=== PATIENT | male | born 1990 | race Hispanic/Latino ===

== ENCOUNTER 2018-02-21 20:19 | Emergency (ER) | payer OTHER ==
[2018-02-21 21:41] VITALS: O2SAT 98
[2018-02-21] MEDS ORDERED: Sodium Chloride 0.9% 1,000 ML IV STA (22:32)
--- NOTE | 2018-02-21 22:59 | ED PDOC ---
HPI: Abdomen Time Seen by Provider: 02/21/18 22:20 Chief Complaint (Nursing): Abdominal Pain Chief Complaint (Provider): Abdominal Pain History Per: Patient History/Exam Limitations: no limitations Onset/Duration Of Symptoms: Hrs Current Symptoms Are (Timing): Still Present Additional Complaint(s): Patient is a 28 y/o male with no significant PMHx who presents to the ED for evaluation of abdominal pain since 10:00 this morning. Patient states the pain was diffuse at first and associated with nausea. Patient [place] [employer] [place] he felt lightheaded. The patient states he sat down and felt better. Later today, the abdominal pain seemed to worsen localizing to the right side resulting in a decrease in appetite. Patient claims to have experienced one episode of diarrhea. Patient denies vomiting and abnormal stool or urine. The patient claims his temperature at home, this evening, was at 100. Of note, patient took Advil but with no relief. PCP: None Provided. Past Medical History Reviewed: Historical Data, Nursing Documentation, Vital Signs Vital Signs: Last Vital Signs Temp 98.2 F 02/21/18 21:38 Pulse 106 H 02/21/18 21:38 Resp 20 02/21/18 21:38 BP 138/75 02/21/18 21:38 Pulse Ox 98 02/21/18 21:38 - Medical History PMH: No Chronic Diseases - Surgical History Surgical History: No Surg Hx - Family History Family History: States: Other Other Family History: Gall Bladder Disease - Social History Current smoker - smoking cessation education provided: No Alcohol: Social Drugs: Denies - Home Medications Home Medications: Ambulatory Orders Medication Instructions Recorded Dicyclomine [Bentyl] 20 mg PO BID #30 tab 02/22/18 - Allergies Allergies/Adverse Reactions: Allergies Allergy/AdvReac Type Severity Reaction Status Date / Time Penicillins Allergy ANAPHYLAXIS Verified 02/21/18 21:38 Review of Systems ROS Statement: Except As Marked, All Systems Reviewed And Found Negative (as per HPI) Gastrointestinal: Positive for: Nausea, Abdominal Pain (diffuse, localizing to right), Diarrhea. Negative for: Vomiting, Melena, Hematochezia Genitourinary Male: Negative for: Dysuria, Hematuria Neurological: Positive for: Other (lightheaded) Physical Exam - Reviewed Nursing Documentation Reviewed: Yes Vital Signs Reviewed: Yes - Physical Exam Appears: Positive for: In Acute Distress (Mild, painful) Head Exam: Positive for: ATRAUMATIC, NORMAL INSPECTION, NORMOCEPHALIC Skin: Positive for: Warm, Dry Eye Exam: Positive for: EOMI, PERRL ENT: Negative for: Pharyngeal Erythema, Tonsillar Exudate Neck: Positive for: Painless ROM, Supple Cardiovascular/Chest: Positive for: Regular Rate, Rhythm. Negative for: Murmur Respiratory: Positive for: Normal Breath Sounds. Negative for: Respiratory Distress Gastrointestinal/Abdominal: Positive for: Soft, Tenderness (RLQ and Periumbilical), Guarding (Voluntary, Diffusely), Other (Negative Perales's Sign). Negative for: Mass, Rebound Back: Positive for: Normal Inspection. Negative for: Decreased ROM Extremity: Positive for: Normal ROM. Negative for: Deformity Lymphatic: Negative for: Adenopathy Neurologic/Psych: Positive for: Alert. Negative for: Motor/Sensory Deficits - Laboratory Results Result Diagrams: 02/21/18 22:50 02/21/18 22:50 - ECG O2 Sat by Pulse Oximetry: 98 (RA) Pulse Ox Interpretation: Normal Medical Decision Making Medical Decision Making: Time: 2230 Impression: Abdominal Pain Plan: Type and Screen CT Abd & Pelvis IV Contrast CMP Lipase Urine Dipstick CBC PTT Prothrombin TIme [Dextrose 5%-0.9% NS 500 ml] 500 ml IV 100 mls/hr IV Fluids Toradol 15 mg IVP Zofran Inj 4 mg IVP IV Insertion ([place]) - Scribe Attestation: Documented by Pablo Lloyd, acting as a scribe for Noemi Birmingham MD. Provider Scribe Attestation: All medical record entries made by the Scribe were at my direction and personally dictated by me. I have reviewed the chart and agree that the record accurately reflects my personal performance of the history, physical exam, medical decision making, and the department course for this patient. I have also personally directed, reviewed, and agree with the discharge instructions and disposition. Disposition - Clinical Impression Clinical Impression: Abdominal pain - Disposition Disposition: Transfer of Care Disposition Time: 00:30 Condition: STABLE Prescriptions: Dicyclomine [Bentyl] 20 mg PO BID #30 tab Instructions: Diverticulosis Patient Signed Over To: Darin Vanegas Handoff Comments: Pending CT, reasessment and final ER dispo
[2018-02-21 23:00] LABS: BASO % 0.4 % (0.0-2.0); EOS # 0.1 K/uL (0.0-0.7); EOS % 1.1 % (0.0-4.0); HEMOGLOBIN 15.3 g/dL (12.0-18.0); LYMPH # 1.4 K/uL (1.0-4.3); LYMPH % 14.1 % (20.0-40.0); MEAN CELL VOLUME 90.5 fl (80.0-94.0); MEAN CORPUSCULAR HEMOGLOBIN 31.2 pg (27.0-31.0); MEAN CORPUSCULAR HGB CONC 34.5 g/dL (33.0-37.0); MEAN PLATELET VOLUME 7.2 fl (7.2-11.7); MONO # 0.7 K/uL (0.0-0.8); MONO % 6.8 % (0.0-10.0); NEUT # 7.9 K/uL (1.8-7.0); NEUT % 77.6 % (50.0-75.0); RBC 4.91 Mil/uL (4.40-5.90); RED CELL DISTRIBUTION WIDTH 12.8 % (11.5-14.5); WHITE BLOOD COUNT 10.2 K/uL (4.8-10.8)
[2018-02-21 23:10] LABS: PROTHROMBIN TIME 11.5 Seconds (9.8-13.1)
[2018-02-21 23:11] LABS: ALB/GLOB RATIO 1.3 (1.0-2.1); ALBUMIN 4.5 g/dL (3.5-5.0); ALT/SGPT 20 U/L (21-72); AST/SGOT 22 U/L (17-59); BLOOD UREA NITROGEN 17 mg/dl (9-20); CALCIUM 9.4 mg/dL (8.4-10.2); GFR NON-AFRICAN AMERICAN > 60; LIPASE 31 U/L (23-300)
[2018-02-21 23:13] LABS: PARTIAL THROMBOPLASTIN TIME 29.6 Seconds (25.6-37.1)
[2018-02-21] MEDS ORDERED: Sodium Chloride 0.9% 50 ML IV ONE (23:35)
[2018-02-21] MEDS ORDERED: Iohexol 300 100 ML IJ ONE (23:35)
--- NOTE | 2018-02-22 00:57 | ED PDOC ---
- Laboratory Results Result Diagrams: 02/21/18 22:50 02/21/18 22:50 Lab Results: PT 11.5 Seconds (9.8-13.1) 02/21/18 22:50 INR 1.0 02/21/18 22:50 APTT 29.6 Seconds (25.6-37.1) 02/21/18 22:50 Total Bilirubin 1.8 mg/dl (0.2-1.3) H 02/21/18 22:50 AST 22 U/L (17-59) 02/21/18 22:50 ALT 20 U/L (21-72) L 02/21/18 22:50 Alkaline Phosphatase 59 U/L (38-126) 02/21/18 22:50 Total Protein 7.8 G/DL (6.3-8.2) 02/21/18 22:50 Albumin 4.5 g/dL (3.5-5.0) 02/21/18 22:50 Globulin 3.3 gm/dL (2.2-3.9) 02/21/18 22:50 Albumin/Globulin Ratio 1.3 (1.0-2.1) 02/21/18 22:50 Lipase 31 U/L (23-300) 02/21/18 22:50 - ECG O2 Sat by Pulse Oximetry: 98 (RA) Pulse Ox Interpretation: Normal Medical Decision Making Medical Decision Making: Time: 00:00 Patient care endorsed from Dr. Birmingham to provider pending CT 01:17 CT Abd Pelvis COMMENTS: Mild diffuse thickening of the bladder. Uncomplicated colonic diverticulosis. Fluid-filled stomach. Fluid filled small bowels. The liver is of uniform attenuation without mass or defect. There is no intra or extrahepatic biliary ductal dilatation. The spleen is normal. The gallbladder is within normal limits. The pancreas is of normal contour and attenuation characteristics. There is no evidence of adrenal mass. Both kidneys demonstrate prompt and equal nephrograms. The kidneys are normal in size, shape and configuration. There is no evidence of renal or ureteral mass. No renal or ureteral calculi are identified. There is no hydroureter or hydronep hrosis. No evidence for appendicitis. There is no bowel wall thickening. No evidence for small or large bowel obstruction. There is no evidence of abdominal ascites or lymphadenopathy. There is no evidence of intrinsic or extrinsic bladder mass. There is no pelvic ascites or lymphadenopathy. Images of the lung bases show no evidence of pleural or parenchymal mass. There are no pleural effusions. The bony structures are free of lytic or blastic lesions. IMPRESSION: Mild diffuse thickening of the bladder. Underdistention versus mild cystitis. Uncomplicated colonic diverticulosis. Fluid-filled stomach. Nonspecific. Fluid filled small bowels. Mild ileus versus developing enteritis. Patient states he's feeling better compared to before. Advised patient of results. Advised plenty of fluids. States he has no PMD, will give referral to GI. Well appearing upon discharge. --------- -------- Scribe Attestation: Documented by Ned Pires acting as a scribe for Darin Vanegas MD. Provider Scribe Attestation: All medical record entries made by the Scribe were at my direction and personally dictated by me. I have reviewed the chart and agree that the record accurately reflects my personal performance of the history, physical exam, medical decision making, and the department course for this patient. I have also personally directed, reviewed, and agree with the discharge instructions and disposition. Disposition - Clinical Impression Clinical Impression: Diverticulosis - POA Present On Arrival: None - Disposition Referrals: Deven Hsu MD, PhD [Staff Provider] - Disposition: Routine/Home Disposition Time: 01:36 Condition: IMPROVED Prescriptions: Dicyclomine [Bentyl] 20 mg PO BID #30 tab Instructions: Diverticulosis Forms: [employer] ([place])
[2018-02-22 02:01] VITALS: BP 114/72; PULSE 64; RESP 19; TEMP 98.7
--- NOTE | 2018-02-22 12:50 | CT ---
Date of service: 02/21/2018 PROCEDURE: CT Abdomen and Pelvis with Oral contrast. HISTORY: RLQ pain COMPARISON: None. TECHNIQUE: Contiguous axial images of the abdomen and pelvis performed following intravenous injection of approximately 90 cc Omnipaque 300 contrast material. Additional 2D sagittal and coronal sagittal reformats generated. Radiation dose: Total exam DLP = 419.3 mGy-cm. This CT exam was performed using one or more of the following dose reduction techniques: Automated exposure control, adjustment of the mA and/or kV according to patient size, and/or use of iterative reconstruction technique. FINDINGS: LOWER THORAX: Is within range of normal. Suspect a trace anterior pericardial effusion. There is a small hiatal hernia with fluid level seen in the distal esophagus likely due to reflux. Minimal wall thickening of the distal esophagus. Suspect minimal linear scarring changes left lingular region lung bases otherwise clear without focal consolidation or effusion. No evidence of basilar pneumothorax. LIVER: Liver exhibits normal size measuring 17 cm in CC dimension. Mild fatty hepatic infiltration.. There is a tiny approximately 4.9 mm elliptical shaped low-attenuation focus within the left lobe liver too small to characterize. This could represent a tiny hemangioma.. Follow-up interval could be performed to assess stability. Portal and splenic veins are opacified. No obvious hepatic mass collection or calcification. GALLBLADDER AND BILE DUCTS: Gallbladder physiologically distended. No evidence of intraluminal gallbladder calculi. PANCREAS: Pancreas appears grossly unremarkable.. SPLEEN: Unremarkable. No splenomegaly. ADRENALS: No adrenal lesions. The KIDNEYS AND URETERS: Kidneys demonstrates symmetric nephrograms. No evidence of nephrolithiasis or hydronephrosis. BLADDER: Urinary bladder is incompletely distended which of in part accounts for thick-walled appearance. Muscular hypertrophy may contribute. Possibility of a cystitis or other intrinsic wall lesion not excluded. Clinical correlation with urinalysis recommended. REPRODUCTIVE: Unremarkable. APPENDIX: No evidence to suggest acute appendicitis. BOWEL: Evaluation of the bowel slightly limited due to the lack of oral contrast material. Stomach is distended with food debris liquid and air. There are multiple on nondistended loops of small bowel some of which exhibit minimal wall thickening. The possibility of a mild enteritis cannot be completely excluded. Few scattered colonic diverticula also felt to be present however no radiographic evidence to suggest acute diverticulitis. PERITONEUM: Unremarkable. No fluid collection. No free air. Small fat containing umbilical hernia. LYMPH NODES: Unremarkable. No enlarged lymph nodes. VASCULATURE: Unremarkable. No aortic aneurysm. No aortic atherosclerotic calcification or mural plaque present. BONES: Minor multilevel degenerative spondylosis of the lower thoracic and lumbar spine. OTHER FINDINGS: None. IMPRESSION: Questionable developing or mild enteritis. Small hiatal hernia with fluid in the distal esophagus likely due to reflux. Mild fatty hepatic infiltration. 4.9 mm low-attenuation lesion left lobe liver too small to characterize though could represent a small hemangioma. Follow-up interval could be performed to assess stability. Mild bladder wall thickening likely due to incomplete distention and muscular hypertrophy however correlation recommended to exclude cystitis.
== END 2018-02-22 02:13 | disposition home or self-care (01) ==
LOC: H.ER 20:19
DX: R10.9 Unspecified abdominal pain (principal); Z88.0 Allergy status to penicillin
CPT/HCPCS: 74177; 80053; 83690; 85025; 85610; 85730; 86850; 86900; 96361; 96374; 96375; 99284; J1885; J2405; J7030; J7042; Q9967